=== PATIENT | male | born 1990 ===

== ENCOUNTER 2022-05-23 10:58 | Emergency (ER) | payer OTHER ==
[2022-05-23 11:04] VITALS: BP 122/95
[2022-05-24] MEDS ORDERED: KETOROLAC 30 MG/1 ML INJ IM ONE (00:58)
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
== END 2022-05-24 02:39 | disposition home or self-care (01) ==
LOC: ED 10:58
DX: S00.83XA Contusion of other part of head, initial encounter (principal); S13.4XXA Sprain of ligaments of cervical spine, initial encounter; V89.2XXA Person injured in unspecified motor-vehicle accident, traffic, initial encounter; Y93.89 Activity, other specified; Y92.89 Other specified places as the place of occurrence of the external cause; Y99.8 Other external cause status
CPT/HCPCS: 72040; 96372; 99283; J1885